=== PATIENT | female | born 1980 | race Caucasian/White ===

== ENCOUNTER → 2017-02-06 | Outpatient (CLI) | payer OTHER ==
[~2017-02-06] MED LIST: AMT10 PO
[2017-02-06 11:00] LABS: BASO % 0.4 %; BASO ABS # 0.02 K/uL (0-0.2); COMPLETE YES; EOS % 3.4 %; HEMATOCRIT 37.9 % (37-47); IG% 0.2 %; LYMPH % 25.7 %; LYMPH ABS # 1.36 K/uL (1.2-3.4); MEAN CORPUSCULAR HGB CONC 33.8 g/dl (32-36); MEAN PLATELET VOLUME 11.1 fL (7.4-10.4); MONO % 8.7 %; NEUT % 61.6 %; PLATELET COUNT 217 K/uL (130-400); RED BLOOD COUNT 4.26 M/uL (4.2-5.4)
[2017-02-06 11:22] LABS: BLOOD UREA NITROGEN 13 mg/dl (7-18); BUN/CREATININE RATIO 17.4 (10-20); CALCIUM 8.9 mg/dl (8.5-10.1); CARBON DIOXIDE 29 mmol/L (21-32); CHLORIDE 108 mmol/L (98-107); CREATININE 0.75 mg/dl (0.60-1.20); GLUCOSE 88 mg/dl (70-99); POTASSIUM 4.1 mmol/L (3.5-5.1); SODIUM 143 mmol/L (136-145)
[2017-02-06 11:38] LABS: ALB/GLOB RATIO 1.3 (0.9-2); ALKALINE PHOSPHATASE 57 U/L (45-117); ALT/SGPT 21 U/L (12-78); AST/SGOT 15 U/L (15-37); CHOLESTEROL 207 mg/dl (0-200); CHOLESTEROL/HDL RATIO 2.1; HDL CHOLESTEROL 97 mg/dl; LDL CHOLESTEROL CALCULATED 91 mg/dl; TRIGLYCERIDES 94 mg/dl (0-150); VERY LOW DENSITY LIPOPROT CALC 19 mg/dl
== END | disposition home or self-care (01) ==
LOC: C.LABBC 08:30
PROVIDERS: ATTEND Internal Medicine
DX: Z00.00 Encounter for general adult medical examination without abnormal findings (principal); R53.83 Other fatigue; L71.9 Rosacea, unspecified

== ENCOUNTER → 2017-04-29 | Outpatient (CLI) | payer OTHER | END | disposition home or self-care (01) | LOC: C.PAPS 09:56 | PROVIDERS: ATTEND Obstetrics & Gynecology | DX: Z12.4 Encounter for screening for malignant neoplasm of cervix (principal); Z11.51 Encounter for screening for human papillomavirus (HPV) ==

== ENCOUNTER → 2017-10-01 | Outpatient (CLI) | payer BC ==
--- NOTE | 2017-10-01 13:53 | MAMMOGRAPHY REPORT ---
BILATERAL DIGITAL DIAGNOSTIC MAMMOGRAM TOMOSYNTHESIS WITH CAD AND TARGETED BILATERAL ULTRASOUND: 10/01 CLINICAL HISTORY: The patient reports left lateral breast pain for approximately 2 weeks. She denies any palpable lumps or other complaints. TECHNIQUE: Breast tomosynthesis in addition to standard 2D mammography was performed. Current study was also evaluated with a Computer Aided Detection (CAD) system. Bilateral CC and MLO 2-D and tomosy nthesis images, spot compression right MLO 2-D and tomosynthesis images, and right ML tomosynthesis i mages were obtained. COMPARISON: No prior exams were available for comparison. BREAST COMPOSITION: The tissue of both breasts is heterogeneously dense, which may obscure small mas ses. FINDINGS: A square marker whitfield the site of pain in the left lateral breast. There are no suspiciou s masses or other suspicious mammographic abnormalities noted in this region. There is an asymmetry seen within the right inferior breast on the MLO view only, which effaces on the spot compression and true lateral view and has the appearance of normal overlapping fibroglandular tissue. The remainder of both breasts are negative, without suspicious masses, calcifications, or areas of architectural d istortion noted. Targeted ultrasound was performed of the area of pain pointed out by the patient, involving the left upper outer quadrant centered around the left 2:00 breast, 3 cm from the nipple. Sonographically nor mal tissue is seen in this region, without evidence of a mass or other suspicious sonographic abnorma lity. Targeted ultrasound was performed of the right inferior breast in the region of the mammograph ic asymmetry, which shows no suspicious masses or other suspicious sonographic abnormalities. IMPRESSION: ACR BI-RADS CATEGORY 2: BENIGN, TARGETED ULTRASOUND ACR BI-RADS CATEGORY 2: BENIGN 1. No suspicious mammographic or sonographic abnormality at the site of left upper outer quadrant br east pain. 2. Right inferior breast asymmetry, which effaces on the additional views and no corresponding suspi cious sonographic abnormality is evident. Findings are benign and compatible with normal fibroglandu lar tissue. There is no mammographic or targeted sonographic evidence of malignancy. Recommend clinical follow-u p for left breast pain, and recommend routine bilateral screening mammograms starting at age of 40 un less otherwise clinically indicated. The patient has been verbally notified of the results. Approximately 10% of breast cancers are not detected with mammography. A negative mammographic report should not delay biopsy if a clinically suggestive mass is present. Cielo Miller M.D. ah/:10/01/2017 11:27:05 Horticulture Superintendent: Nelda FISCHER)([place]), [facility] letter sent: Normal 1/2 BI-RADS Code: ACR BI-RADS Category 2: Benign Ultrasound BI-RADS: ACR BI-RADS Category 2: Benign
== END | disposition home or self-care (01) ==
LOC: C.MAMM 10:30
PROVIDERS: ATTEND Physician Assistant
DX: N64.4 Mastodynia (principal); N64.9 Disorder of breast, unspecified

== ENCOUNTER → 2017-10-08 | Outpatient (CLI) | payer BC | END | disposition home or self-care (01) | LOC: C.PATHSPEC 16:56 | PROVIDERS: ATTEND Dermatology | DX: L91.8 Other hypertrophic disorders of the skin (principal) ==

== ENCOUNTER 2017-12-28 12:34 | Emergency (ER) | payer BC ==
[~2017-12-28] VITALS: Ht 170.2 cm; Wt 62.0 kg
[2017-12-28 12:35] VITALS: TEMP 36.8; Ht 170.2 cm; Wt 62.0 kg
[2017-12-28 13:25] LABS: BASO % 0.3 %; BASO ABS # 0.02 K/uL (0-0.2); EOS ABS # 0.18 K/uL (0-0.5); HEMATOCRIT 38.5 % (37-47); HEMOGLOBIN 12.9 g/dL (12.0-16.0); IG# 0.01 K/uL (0.00-0.02); LYMPH % 26.2 %; LYMPH ABS # 1.57 K/uL (1.2-3.4); MEAN CELL VOLUME 90.6 fL (80-100); MEAN CORPUSCULAR HEMOGLOBIN 30.4 pg (25-34); MEAN CORPUSCULAR HGB CONC 33.5 g/dl (32-36); MEAN PLATELET VOLUME 10.5 fL (7.4-10.4); MONO % 7.5 %; MONO ABS # 0.45 K/uL (0.11-0.59); NEUT % 62.8 %; NEUT ABS # 3.76 K/uL (1.4-6.5); PLATELET COUNT 197 K/uL (130-400); RED CELL DISTRIBUTION WIDTH CV 12.5 % (11.5-14.5); RED CELL DISTRIBUTION WIDTH SD 40.7 fL (36.4-46.3); WHITE BLOOD COUNT 5.99 K/uL (4.8-10.8)
[2017-12-28 13:33] LABS: INR 1.1 (0.9-1.1); PTT PATIENT 25.7 SECONDS (21.0-31.0)
[2017-12-28 13:51] LABS: CALCIUM 8.8 mg/dl (8.5-10.1); CREATININE 0.82 mg/dl (0.60-1.20); POTASSIUM 3.5 mmol/L (3.5-5.1)
--- NOTE | 2017-12-28 14:26 | DIAGNOSTIC IMAGING REPORT ---
EXAMINATION: PELVIC ULTRASOUND (transabdominal and endovaginal scanning) CLINICAL HISTORY: Menorrhagia COMPARISON STUDY: FINDINGS: The uterus measured 7.7 x 3.9 x 5.2 cm. The endometrial stripe measured 6 mm. The right ovary measured 32 x 15 x 27 mm. The left ovary measured 38 x 15 x 23 mm. There is no ultrasonographic evidence of ovarian torsion. It should be noted that ovarian torsion can be present with normal Doppler ultrasonographic findings. There was no evidence of pathologic free pelvic fluid. IMPRESSION: Normal pelvic ultrasound Electronically signed by: Ernesto Ballard M.D. 12/28/2017 2:25 PM Dictated Date/Time: 12/28/2017 2:24 PM
--- NOTE | 2017-12-28 15:06 | EMERGENCY ROOM VISIT NOTE ---
History First contact with patient: 12:48 Chief Complaint: ED VAG BLEEDING Stated Complaint: HEAVY PERIOD History of Present Illness The patient is a 37 year old female who presents to the Emergency Room with complaints of heavy menses. The patient states that her menstrual period started last night and this morning at around 9 AM it became increasingly heavier. She states normally the first day she does have heavy menses and has to change her super tampon every hour but now she is changing it every 10-15 minutes. The patient denies any bleeding between her periods. Patient denies any nausea or vomiting. The patient denies any abdominal pain. She called her credit union teller, Dr. Hurtado and was told to come to the emergency room. The patient denies any history of endometriosis or fibroids. The patient denies any chance of . She states her boyfriend had a vasectomy. Review of Systems 10 system review was performed and was negative unless stated otherwise history of present illness. Past Medical/Surgical History Medical Problems: (1) Migraines Social History Smoking Status: Never Smoker Marital Status: single Occupation Status: employed Current/Historical Medications Scheduled Amitriptyline HCl (Amitriptyline HCl), 10 MG PO HS Physical Exam Vital Signs Date Time Temp Pulse Resp B/P (MAP) Pulse Ox O2 Delivery O2 Flow Rate FiO2 12/28/17 14:50 73 20 111/69 98 Room Air 12/28/17 12:35 36.8 79 16 146/97 100 Physical Exam GENERAL: 37-year-old white female appears in no acute distress. MENTAL Status: Alert and oriented 3. MOUTH: Mucosa is moist NECK: Supple, no lymphadenopathy noted. No carotid bruits noted. LUNGS: Clear auscultation without wheezes rales or rhonchi. CARDIAC: Regular rate and rhythm without murmur. Pulses is full and equal throughout. BACK: No CVA tenderness noted. ABDOMEN: Positive bowel sounds all 4 quadrants. Soft, nontender to palpation without organomegaly or masses. EXTREMITIES: No cyanosis or edema noted. Medical Decision & Procedures ER Provider Diagnostic Interpretation: EXAMINATION: PELVIC ULTRASOUND (transabdominal and endovaginal scanning) CLINICAL HISTORY: Menorrhagia COMPARISON STUDY: FINDINGS: The uterus measured 7.7 x 3.9 x 5.2 cm. The endometrial stripe measured 6 mm. The right ovary measured 32 x 15 x 27 mm. The left ovary measured 38 x 15 x 23 mm. There is no ultrasonographic evidence of ovarian torsion. It should be noted that ovarian torsion can be present with normal Doppler ultrasonographic findings. There was no evidence of pathologic free pelvic fluid. IMPRESSION: Normal pelvic ultrasound Electronically signed by: Ernesto Ballard M.D. 12/28/2017 2:25 PM Laboratory Results 12/28/17 13:10 Red Blood Count 4.25, Mean Corpuscular Volume 90.6, Mean Corpuscular Hemoglobin 30.4, Mean Corpuscular Hemoglobin Concent 33.5, Mean Platelet Volume 10.5, Neutrophils (%) (Auto) 62.8, Lymphocytes (%) (Auto) 26.2, Monocytes (%) (Auto) 7.5, Eosinophils (%) (Auto) 3.0, Basophils (%) (Auto) 0.3, Neutrophils # (Auto) 3.76, Lymphocytes # (Auto) 1.57, Monocytes # (Auto) 0.45, Eosinophils # (Auto) 0.18, Basophils # (Auto) 0.02 12/28/17 13:10 Test 12/28/17 13:10 12/28/17 13:31 White Blood Count 5.99 K/uL (4.8-10.8) Red Blood Count 4.25 M/uL (4.2-5.4) Hemoglobin 12.9 g/dL (12.0-16.0) Hematocrit 38.5 % (37-47) Mean Corpuscular Volume 90.6 fL (80-100) Mean Corpuscular Hemoglobin 30.4 pg (25-34) Mean Corpuscular Hemoglobin Concent 33.5 g/dl (32-36) Platelet Count 197 K/uL (130-400) Mean Platelet Volume 10.5 fL (7.4-10.4) Neutrophils (%) (Auto) 62.8 % Lymphocytes (%) (Auto) 26.2 % Monocytes (%) (Auto) 7.5 % Eosinophils (%) (Auto) 3.0 % Basophils (%) (Auto) 0.3 % Neutrophils # (Auto) 3.76 K/uL (1.4-6.5) Lymphocytes # (Auto) 1.57 K/uL (1.2-3.4) Monocytes # (Auto) 0.45 K/uL (0.11-0.59) Eosinophils # (Auto) 0.18 K/uL (0-0.5) Basophils # (Auto) 0.02 K/uL (0-0.2) RDW Standard Deviation 40.7 fL (36.4-46.3) RDW Coefficient of Variation 12.5 % (11.5-14.5) Immature Granulocyte % (Auto) 0.2 % Immature Granulocyte # (Auto) 0.01 K/uL (0.00-0.02) Prothrombin Time 11.3 SECONDS (9.0-12.0) Prothromb Time International Ratio 1.1 (0.9-1.1) Activated Partial Thromboplast Time 25.7 SECONDS (21.0-31.0) Partial Thromboplastin Ratio 1.0 Anion Gap 8.0 mmol/L (3-11) Est Creatinine Clear Calc Drug Dose 91.4 ml/min Estimated GFR () 106.0 Estimated GFR (Non- 91.4 BUN/Creatinine Ratio 14.8 (10-20) Calcium Level 8.8 mg/dl (8.5-10.1) Human Chorionic Gonadotropin, Qual NEG (NEG) ED Course Patient was evaluated. IV access was obtained. Beta hCG, CBC and differential , coags, renal profile was ordered. Pelvic ultrasound was ordered interpreted by the radiologist as above without any acute findings.. Labs are reviewed and were unremarkable. I contacted Dr. Hurtado, [facility] gynecology about the patient. She stated since the patient was hemodynamically stable I could discharge the patient on an Agestin taper and have her follow-up in the office. The patient was informed of the findings and of treatment plan and was in agreement. The patient was discharged home in stable condition. Medical Decision Differential diagnoses include endometriosis, , partial , ectopic [place] Drug Monitoring Program Search Results: patient reviewed within database Medication Reconcilliation Current Medication List: was personally reviewed by me Blood Pressure Screening Patient's blood pressure: Normal blood pressure Impression Primary Impression: Menorrhagia Departure Information Dispostion Home / Self-Care Condition GOOD Referrals No Doctor, Assigned (PCP) Maya Hurtado MD Forms HOME CARE DOCUMENTATION FORM, IMPORTANT VISIT INFORMATION, WORK / SCHOOL INSTRUCTIONS Patient Instructions My [facility] Additional Instructions Take Provera as prescribed. Call gynecology for follow-up appointment. Problem Qualifiers Primary Impression: Menorrhagia Menorrahagia type: with regular cycle Qualified Codes: N92.0 - Excessive and frequent menstruation with regular cycle
[2017-12-28 15:45] VITALS: BP 120/68; PULSE 68; O2SAT 100
== END 2017-12-28 15:45 | disposition home or self-care (01) ==
LOC: C.EDB 12:35 → C.EDC 15:45
DX: N92.0 Excessive and frequent menstruation with regular cycle (principal)